=== PATIENT | female | born 1980 | race African-American/Black ===

== ENCOUNTER 2019-09-20 17:47 | Emergency (ER) | payer OTHER, SELFPAY ==
[2019-09-20 17:59] VITALS: BP 152/84; PULSE 107; RESP 16; TEMP 37.5; O2SAT 99
--- NOTE | 2019-09-20 18:02 | ED.FEMALEGU ---
HPI - Female Genitourinary General Chief complaint: Urogenital-Female Stated complaint: UTI Time Seen by Provider: 09/20/19 18:06 Source: patient and RN notes reviewed Mode of arrival: ambulatory Limitations: no limitations History of Present Illness HPI Narrative: 39 year old female who presents to [facility] care with complaints of frequency, increased thirst, lethargy, fatigue for the past week. Patient states she has also noted blood when she wiped with not being on her menses.Patient states she has noted that her urine has had foul smell and states past history of UTI's. Patient also states that she has red rash on abdominal skin fold which is itchy and request medication for rash. Urine noted to have 3+ glucose noted with no personal history of diabetes stated, states family history of diabetes in both parents. Glucose per finger stick noted to be 339, patient states that she has appointment with her family physician on copies of all labs done in clinic given to patient. MD elicited complaint: UTI and other (urinary frequency, noted blood when wiping, urine has foul odor) Pertinent past history: recurrent UTIs Onset (ago): week(s) (1) Location of symptoms: other (no pain) Severity: mild Female Urogenital Radiation: Non-Radiating Quality of pain: other (no acute pain) Consistency: constant Vaginal discharge: none Vaginal bleeding: none Urinary symptoms: Urgency, Frequency, Hematuria and Foul Smelling Urine Exacerbating factors: none Relieving factors: none Associated symptoms: other (polyuria,polydipsia) Treatment prior to arrival: none Sexual activity: Yes Patient : No Possible : other (tubal) Related Data Home Medications Medication Instructions Recorded Confirmed cholecalciferol (vitamin D3) 09/20/19 hydroxyzine HCl 09/20/19 sertraline mg 09/20/19 Allergies Allergy/AdvReac Type Severity Reaction Status Date / Time Penicillins Allergy Unknown Verified 01/08/18 06:20 Sulfa (Sulfonamide Allergy Unknown Verified 01/08/18 06:20 Antibiotics) Review of Systems Review of Systems: Narrative: CONSTITUTIONAL: Denies fever, chills, or sweats. EYES: Denies visual changes, redness, or discharge. ENT: Denies rhinorrhea, congestion, sore throat, or otalgia. CARDIOVASCULAR: Denies chest pain, palpitations, or edema. RESPIRATORY: Denies cough or dyspnea. GASTROINTESTINAL: Denies abdominal pain, nausea, vomiting, or diarrhea. GENITOURINARY: Denies dysuria urinary urgengy and frequency with hematuria. SKIN: red rash or itching abdominal skin fold no drainage MUSCULOSKELETAL: Denies back pain, joint pain, or myalgia. NEUROLOGIC: Denies headache, numbness, or weakness. PSYCHIATRIC:positive anxiety or depression. All systems reviewed & are unremarkable except as noted in HPI and below PMFSH Past Medical History Medical History (Updated 09/24/19 @ 11:13 by Danielle García NP) Anxiety and depression UTI (urinary tract infection) Surgical History Surgical History (Updated 09/20/19 @ 18:41 by Danielle García NP) Tubal ligation status Family History Family History (Updated 09/20/19 @ 18:42 by Danielle García NP) Mother Hypertension Diabetes mellitus Father Diabetes mellitus Social History Social History (Updated 09/20/19 @ 18:43 by Danielle García NP) Smoking status: Never smoker Living arrangements: with family Gender identity (if verbalized by the patient): Female Comments At time of signature, agree with nursing past medical, social history. There is no relevant family history pertinent to the presenting complaint Exam Narrative: Exam Narrative: GENERAL: Well-appearing, well-nourished, and in no acute distress. HEAD: Normocephalic, atraumatic. EYES: PERRLA and EOMI. ENT: Nares clear, no rhinorrhea or epistaxis. Mucous membranes moist. NECK: Supple.no lymphadenopathy CHEST: Clear to auscultation. No respiratory distress. HEART: Regular rate and rhythm.
[2019-09-20 18:23] LABS: Glucose Point of Care 339 (65-105)
== END 2019-09-20 18:58 | disposition home or self-care (01) ==
PROVIDERS: Emergency Provider Registered Nurse
DX: N39.0 Urinary tract infection, site not specified (principal); B37.2 Candidiasis of skin and nail; R73.9 Hyperglycemia, unspecified; F41.9 Anxiety disorder, unspecified; F32.9 Major depressive disorder, single episode, unspecified
CPT/HCPCS: 81003; 82948; 87086; 87088; 99213; G0463

== ENCOUNTER → 2020-07-23 08:00 | Outpatient (CLI) | payer OTHER, SELFPAY ==
--- NOTE | 2020-09-06 12:06 | WPDHOMESLEEP ---
Sleep Study - Home Unattended Date of Study: 07/23/20 Ordering Provider: Gerardo Rich APRN Interpreting Physician: Betsy Doss MD Home Sleep Study Type: Watch PAT Height: 1.6 m Weight: 113.398 kg Body Mass Index: 44.2 Neck Circumference (inches): 15 [place]: 16 Reason for Sleep Study poor quality sleep, waking up during the night Sleep History Gabby Cordon is a 40-year-old female with poor quality sleep. She will often sleep for 3 hours, then wake during the night, not feeling rested, unable to return to sleep. She has many things on her mind as a single parent with 4 children. There is a family history of sleep issues. She reports that her mother snores, and her rather uses CPAP. Her son snores and has had his tonsils removed. She has received amitriptyline to help with her sleep issues. She rarely awakens from sleep feeling short of breath. She occasionally awakens at night with heartburn, belching or coughing. She occasionally snores. Her snoring is never loud enough that it bothers others. She frequently has trouble sleeping with a cold. She occasionally wakes up gasping for breath during the night. She rarely has breathing problems at night observed by others. She rarely sweats excessively at night. She frequently notices her heart pounding or beating irregularly at night. She frequently falls asleep during the day, rarely involuntarily, never while driving. She never falls asleep while exerting physical effort. She does not have loss of muscle tone with strong emotion. She does not have daytime difficulties due to excessive sleepiness. 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 She does not feel paralyzed on waking or falling asleep. She rarely has vivid dream like scenes upon awakening or falling asleep. She is never afraid to go to sleep. she occasionally has nightmares. She frequently remembers her dreams. She frequently has racing thoughts, feelings of sadness, depression and anxiety. She rarely has muscular tension. She occasionally notices parts her body jerking. She occasionally kicks at night. She occasionally has crawling and aching feelings in her legs, rarely has any leg pain at night. She did not have morning jaw pain. She does not grind her teeth during sleep. She rarely is bothered by pain during the day, never is awakened by pain at night. She occasionally wakes up feeling stiff in the morning with sore achy muscles. She rarely wakes up with pain in the neck and spine. She has fatigue, insomnia, depression and feelings of panic. Normal bedtime is 10:00 p.m. he often falls asleep within 30 minutes. She typically wakes 2-3 times during the night. While awake, she will use the bathroom or pray for peace and relaxation. While she is awake she often stays awake for 1 hour. She wakes in the morning at 7:30 a.m.. On the weekends she goes to bed later, 11:00 p.m. and sleeps until 11: She does take naps in the afternoon or evening. A short 10-15 minute nap may be refreshing. She is usually drowsy in the morning for 2 hours or longer. She feels better in the afternoon compared to other times of day. Habits: No tobacco, caffeine, alcohol, or recreational drugs PMFSH Past Medical History Medical History (Updated 09/06/20 @ 12:29 by Betsy Doss MD) Anxiety and depression UTI (urinary tract infection) Surgical History Surgical History Tubal ligation status Family History Family History (Updated 09/06/20 @ 12:18 by Betsy Doss MD) Mother Hypertension Diabetes mellitus Father Diabetes mellitus Sleep apnea Social History Social History (Updated 09/06/20 @ 12:18 by Betsy Doss MD) Smoking status: Never smoker Alcohol intake: never Substance use: never Living arrangements: with family Gender identity (if verbalized by the patient): Female Medications Home Medications Medication Instructions Recor
[2020-09-06 12:39] VITALS: BMI 44.2
== END ==
PROVIDERS: Visit Provider Nurse Practitioner Family
DX: G47.09 Other insomnia (principal); R06.83 Snoring
CPT/HCPCS: 95800

== ENCOUNTER 2021-07-17 11:50 | Emergency (ER) | payer OTHER, SELFPAY ==
--- NOTE | 2021-07-17 11:58 | ED.FEMALEGU ---
HPI - Female Genitourinary General Chief complaint: Urogenital-Female Stated complaint: UTI,Blurred Vision Time Seen by Provider: 07/17/21 11:58 Source: patient, RN notes reviewed and old records reviewed Mode of arrival: ambulatory Limitations: no limitations History of Present Illness HPI Narrative: 41-year-old female presents to the [facility] with complaints of a decreased urination, blurry vision and states she is having trouble driving and seeing. Patient states she is a borderline diabetic. Does take Metformin. Has not taken her dose today. Patient reports that she was recently on prednisone for treatment of bronchitis. States that she was seen at [facility]. Related Data Home Medications Medication Instructions Recorded Confirmed cholecalciferol (vitamin D3) 09/20/19 hydroxyzine HCl 09/20/19 montelukast 10 mg PO DAILY 07/17/21 07/17/21 Allergies Allergy/AdvReac Type Severity Reaction Status Date / Time Penicillins Allergy Unknown Rash Verified 07/17/21 11:58 Sulfa (Sulfonamide Allergy Unknown Rash Verified 07/17/21 11:58 Antibiotics) Review of Systems Review of Systems: All systems reviewed & are unremarkable except as noted in HPI and below Constitutional: Constitutional: Reports no additional constitutional complaints, Denies chills and Denies fatigue Eyes: Eyes: Reports no additional eye complaints ENT: Reports system reviewed and no additional complaints, except as documented Cardiovascular: Cardiovascular: Reports no additional cardiovascular complaints and Denies chest pain Respiratory: Respiratory: Reports no additional respiratory complaints, Denies cough, Denies dyspnea and Denies wheezing Gastrointestinal: Gastrointestinal: Reports no additional gastrointestinal complaints, Denies abdominal pain, Denies nausea and Denies vomiting Genitourinary: Genitourinary: Reports as per HPI and Reports nocturia Musculoskeletal: Musculoskeletal: Reports no additional musculoskeletal complaints Integumentary/Breasts: Skin/Breast: Reports system reviewed and no additional complaints, except as docu Neurologic: Reports system reviewed and no additional complaints, except as documented Psychiatric: Psychiatric: Reports no additional psychiatric complaints Endocrine: Endocrine: Reports as per HPI, Reports fatigue, Reports polydipsia and Reports polyuria Allergic/Immunologic: Allergic/Immunologic: Reports no additional allergic/immunologic complaints PMFSH Past Medical History Medical History Anxiety and depression UTI (urinary tract infection) Surgical History Surgical History Tubal ligation status Family History Family History Mother Hypertension Diabetes mellitus Father Diabetes mellitus Sleep apnea Social History Social History Smoking status: Never smoker Alcohol intake: never Substance use: never Gender identity (if verbalized by the patient): Female Comments At the time of my signature, I reviewed and agree with the nursing past medical, surgical, social, and family history. There is no relevant family history pertinent to the patient complaint. Exam Const: General: healthy appearing, no acute distress and alert Nutritional Appearance: well nourished and obese Orientation/consciousness: patient oriented x3 Limitations: no limitations HENMT: Head: normal to inspection Ears: external ears normal, TM's normal bilaterally and EAC's normal Eyes: Conjunctivae: conjunctivae normal Pupils: Equal, round and reactive pupils present Neck: Neck: normal visual inspection, no lymphadenopathy and no meningeal signs Chest: Chest palpation & inspection: normal inspection of the chest Resp: Effort & Inspection: normal respiratory effort Auscultation: clear to auscultatio
[2021-07-17 12:04] VITALS: BP 113/54; PULSE 113; RESP 18; TEMP 37.3; O2SAT 100
[2021-07-17 12:20] LABS: Glucose Point of Care > 500 mg/dl (65-105)
== END 2021-07-17 12:16 | disposition short-term general hospital (02) ==
LOC: EXPCOLL 11:54
PROVIDERS: Emergency Provider Nurse Practitioner
DX: R73.9 Hyperglycemia, unspecified (principal)
CPT/HCPCS: 81003; 82948; 99215; G0463

== ENCOUNTER 2021-07-17 12:52 | Emergency (ER) | payer OTHER, SELFPAY ==
[2021-07-17 12:50] VITALS: BP 121/78; PULSE 115; RESP 17; O2SAT 98
[2021-07-17 13:06] LABS: Glucose Point of Care 480 mg/dl (65-105)
[2021-07-17 13:41] LABS: Basophils Absolute Auto 0.1 K/mm3 (0.0-0.1); Eosinophils Absolute Auto 0.5 K/mm3 (0-0.3); Hematocrit 39.5 % (37.0-47.0); Hemoglobin 13.4 g/dL (12.0-15.0); Immature Granulocyte Absolute 0.04 K/mm3 (0.00-0.031); Immature Granulocyte Percent A 0.6 % (0-0.5); Lymphocytes Absolute Auto 1.72 K/mm3 (0.9-3.2); Mean Corpuscular HGB Conc 33.9 g/dl (32-36); Mean Corpuscular Hemoglobin 26.5 pg (26-34); Mean Corpuscular Volume 78.1 fl (80-100); Mean Platelet Volume 10.5 fl (7.4-10.4); Monocytes Absolute Auto 0.7 K/mm3 (0.1-0.6); Monocytes Percent Auto 9.6 % (2.6-8.5); Neutrophils Absolute Auto 3.9 K/mm3 (1.3-6.7); Neutrophils Percent Auto 56.8 % (45.5-73.1); Platelet Count Result 493 k/mm3 (150-375); Red Blood Count 5.06 M/mm3 (4.2-5.4); Red Cell Distribution Width 13.9 % (11.5-14.5); White Blood Count 6.9 K/mm3 (4.5-10.0)
[2021-07-17 13:52] LABS: Fractional Inspired Oxygen 21 %; HCO3 VBG 22.3 mEq/l (24.0-30.0); PCO2 VBG 36.1 mmHg (42.0-48.0); PO2 VBG 69.7 mmHg (35.0-45.0)
[2021-07-17 13:55] LABS: Device ROOM AIR; pH VBG 7.409 (7.300-7.400)
[2021-07-17] MEDS: SODIUM CHLORIDE 0.9% IV 1,000 ML 999 ML IV CONT ×2 (13:58→14:03)
[2021-07-17 14:07] LABS: Alanine Aminotransferase 22 U/L (4-35); Alkaline Phosphatase 113 U/L (38-126); Anion Gap 15 mmol/L (8-16); Aspartate Amino Transferase 31 U/L (14-36); Bilirubin,Total 0.5 mg/dL (0.2-1.3); Blood Urea Nitrogen 6 mg/dL (7-17); Carbon Dioxide 19 mmol/L (22-30); Chloride 95 mmol/L (98-107); Estimated CRCL calculation 138 ml/min; Estimated Glomerular Filt Rate > 60; Glucose 490 mg/dL (65-110); Magnesium 1.5 mg/dL (1.6-2.3); Phosphorus 3.2 mg/dL (2.5-4.5); Sodium 129 mmol/L (137-145)
--- NOTE | 2021-07-17 14:14 | ED.GENADULT ---
HPI - General Adult General Chief complaint: Recheck/Abnormal Lab/Rx Stated complaint: high blood sugar Source: patient Mode of arrival: ambulatory Limitations: no limitations History of Present Illness HPI narrative: Patient is 41 years old -F[place] female presented to the ED with hyperglycemia noticed in the last 2 to 3 days. Patient also complaining of frequent urination. Patient denies any fever, chills, nausea, vomiting. Patient had a recent diagnosis of bronchitis, finished a course of antibiotic antibiotic and a course of prednisone 3 days ago. Patient had history of prediabetic and should be on Metformin 1000 twice daily, patient takes only once a day. Patient was vaccinated for COVID-19. Patient denies any fever, chills, nausea, vomiting, diarrhea, constipation or abdominal pain. Related Data Home Medications Medication Instructions Recorded Confirmed cholecalciferol (vitamin D3) 25 mcg PO DAILY 09/20/19 07/17/21 hydroxyzine HCl 25 mg PO DAILY 09/20/19 07/17/21 metformin mg 07/17/21 montelukast 10 mg PO DAILY 07/17/21 07/17/21 Allergies Allergy/AdvReac Type Severity Reaction Status Date / Time Penicillins Allergy Unknown Rash Verified 07/17/21 11:58 Sulfa (Sulfonamide Allergy Unknown Rash Verified 07/17/21 11:58 Antibiotics) codeine Allergy Rash Verified 07/17/21 13:07 ciprofloxacin AdvReac Nausea Verified 07/17/21 13:07 Review of Systems Review of Systems: CONSTITUTIONAL: Denies fever, chills, or sweats. EYES: Denies visual changes, redness, or discharge. ENT: Denies rhinorrhea, congestion, sore throat, or otalgia. CARDIOVASCULAR: Denies chest pain, palpitations, or edema. RESPIRATORY: Denies cough or dyspnea. GASTROINTESTINAL: Denies abdominal pain, nausea, vomiting, or diarrhea. GENITOURINARY: Denies dysuria or hematuria. SKIN: Denies rash or itching. MUSCULOSKELETAL: Denies back pain, joint pain, or myalgia. NEUROLOGIC: Denies headache, numbness, or weakness. PSYCHIATRIC: Denies anxiety or depression. [facility] Past Medical History Medical History Anxiety and depression UTI (urinary tract infection) Surgical History Surgical History Tubal ligation status Family History Family History Mother Hypertension Diabetes mellitus Father Diabetes mellitus Sleep apnea Social History Social History Smoking status: Never smoker Alcohol intake: never Substance use: never Gender identity (if verbalized by the patient): Female Exam Narrative: General appearance: Well-developed, well-nourished Skin: Normal color Head: Normocephalic, nontraumatic Eyes: Clear conjunctiva ENT: Oropharynx normal, ears normal, nose normal Neck: Supple, nontender Chest and respiratory: Airway patent, no respiratory distress, no accessory muscle use Heart: Regular rate/rhythm Abdomen: Soft, nontender, no organomegaly, quiet bowel sounds Vascular: Normal peripheral pulses, normal capillary refill. 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
[2021-07-17 14:59] LABS: Add Urine Microscopic? YES; Appearance Urine Clear (Clear); Bilirubin Urine Negative (Negative); Blood Urine Negative (Negative); Color Urine Straw (Yellow); Glucose Urine UA 3+ mg/dL (Negative); Ketones Urine Negative (Negative); Leukocyte Esterase Ur Negative LEU/UL (Negative); Mucus Urine Rare /lpf; Nitrate Urine Negative (Negative); Protein Urine Negative (Negative); RBC Urine 0-2 /hpf (0-2); Specific Grav Ur 1.025 (1.001-1.035); Squamous Epithelial Cell Urine Occasional /hpf (Few); Urobilinogen Urine Negative mg/dL (<2.0); WBC Urine 0-3 /hpf
[2021-07-17 15:08] LABS: Glucose Point of Care 389 mg/dl (65-105)
[2021-07-17] MEDS: INSULIN HUMAN REGULAR (*BKC) 100 UNITS/ML 13 UNITS IV PUSH (15:14)
--- NOTE | 2021-07-17 15:28 | PC.NURSE ---
Clarified with MD Davalos, even though patient's blood sugar decreasing, still give the 13 units Regular insulin IVP. Insulin administered with second RN. Pt updated on POC.
[2021-07-17 17:04] VITALS: PULSE 111; RESP 26
[2021-07-17 17:15] VITALS: PULSE 103; RESP 16
[2021-07-17 17:19] LABS: Glucose Point of Care 183 mg/dl (65-105)
[2021-07-17 17:50] VITALS: PULSE 99; RESP 15
[2021-07-17 17:58] LABS: Beta-Hydroxybutyrate/Acetoacetate 0.13 mmol/L (0.02-0.27)
[2021-07-17 18:50] VITALS: BP 134/68; PULSE 89; RESP 16; O2SAT 100
== END 2021-07-17 18:55 | disposition home or self-care (01) ==
PROVIDERS: Emergency Provider Emergency Medicine
DX: R73.9 Hyperglycemia, unspecified (principal); F32.9 Major depressive disorder, single episode, unspecified; Z87.440 Personal history of urinary (tract) infections; F41.9 Anxiety disorder, unspecified
CPT/HCPCS: 36415; 80053; 81001; 81003; 82010; 82803; 82948; 83735; 84100; 85025; 96361; 96374; 99284; J1815; J7030

== ENCOUNTER 2022-08-31 19:33 | Emergency (ER) | payer OTHER, SELFPAY ==
--- NOTE | 2022-08-31 19:34 | ED.FEMALEGU ---
HPI - Female Genitourinary General Chief complaint: Urogenital-Female Stated complaint: UTI Time Seen by Provider: 08/31/22 19:34 Source: patient Mode of arrival: ambulatory Limitations: no limitations History of Present Illness HPI Narrative: Ms. Cordon is a 42-year-old female patient presenting to clinic today with complaints of possible urinary tract infection times 2-3 days. She reports she is having burning with urination as well as some low back pain and lower abdominal pain. She denies any fever but has had some chills with this. Patient has been taking azo for her symptoms. Related Data Home Medications Medication Instructions Recorded Confirmed cholecalciferol (vitamin D3) 25 25 mcg PO DAILY 09/20/19 08/31/22 mcg (1,000 unit) tablet hydroxyzine HCl 25 mg tablet 25 mg PO DAILY 09/20/19 08/31/22 metformin 1,000 mg tablet 1,000 mg PO BID 07/17/21 08/31/22 montelukast 10 mg tablet 10 mg PO DAILY 07/17/21 08/31/22 duloxetine 30 mg capsule,delayed 30 mg PO BID 08/31/22 08/31/22 release Allergies Allergy/AdvReac Type Severity Reaction Status Date / Time Penicillins Allergy Unknown Rash Verified 08/31/22 19:49 Sulfa (Sulfonamide Allergy Unknown Rash Verified 08/31/22 19:49 Antibiotics) codeine Allergy Rash Verified 08/31/22 19:49 ciprofloxacin AdvReac Nausea Verified 08/31/22 19:49 Review of Systems Review of Systems: Pertinent positives per HPI. Patient denies any fever, rash, headache, visual changes, dizziness, cough, runny nose, sore throat, shortness of breath, chest pain, palpitations, nausea, vomiting, diarrhea, or constipation. [facility] Past Medical History Medical History Anxiety and depression UTI (urinary tract infection) Surgical History Surgical History Tubal ligation status Family History Family History Mother Hypertension Diabetes mellitus Father Diabetes mellitus Sleep apnea Social History Social History Smoking status: Never smoker Alcohol intake: never Substance use: never Living arrangements: with family Gender identity (if verbalized by the patient): Female Comments At the time of my signature, I reviewed and agree with the nursing past medical, surgical, social, and family history. There is no relevant family history pertinent to the patient complaint. Exam Narrative: General: Well-developed, morbidly obese, in no apparent distress. Head: Normocephalic, atraumatic. Cardio: Regular rate and rhythm, s1 and s2 normal, no murmur appreciated. Resp: Clear to auscultation bilaterally, no rhonchi, rales, wheezing or rubs. Abdomen: Soft, pliable, bowel sounds present in all quadrants, tender to palpation over the bladder, no organomegly, right-sided CVAT tenderness. Course Course Emergency Course: Portions of this record may have been created with voice recognition software. Level of Care: Express Care Visit Vital Signs Vital signs: Vital signs reviewed MDM - Female Genitourinary MDM Narrative Medical decision making narrative: At the time of visit patient is resting comfortably on the exam table. UA was obtained and was positive for nitrates, blood, leukocytes, and protein. Patient has multiple allergies so I will send in prescription for Macrobid and await urine culture. Supportive measures were discussed with the patient she voiced understanding of discharge instructions and agrees to treatment plan. Differential Diagnosis Differential diagnosis: Likely urinary tract infection, cystitis and other (Pyelonephritis) Discharge Plan Discharge Clinical Impression: Urinary tract infection Qualifiers: Urinary tract infection type: acute cystitis Hematuria presence: with hematuria Qualified Code(s): N30.01 -
[2022-08-31 19:37] VITALS: BP 143/78; PULSE 107; RESP 20; TEMP 36.1; O2SAT 100
== END 2022-08-31 19:52 | disposition home or self-care (01) ==
PROVIDERS: Emergency Provider Nurse Practitioner Family; PCP Family Medicine
DX: N30.01 Acute cystitis with hematuria (principal); F41.9 Anxiety disorder, unspecified
CPT/HCPCS: 81003; 87077; 87086; 87186; 99213; G0463

== ENCOUNTER 2023-07-09 09:51 | Emergency (ER) | payer OTHER, SELFPAY ==
[2023-07-09 10:05] VITALS: BP 131/78; PULSE 101; RESP 16; TEMP 37.2; O2SAT 97
--- NOTE | 2023-07-09 10:35 | ED.GENADULT ---
HPI - General Adult General Chief complaint: Unspecified Stated complaint: vision blurry,blood sugar high, vaginal order Time Seen by Provider: 07/09/23 10:35 Source: patient Mode of arrival: ambulatory Limitations: no limitations History of Present Illness HPI narrative: 43 yo F presents with c/o vaginal odor, perea discharge. States recent intercourse and her partner told her she had fishy odor. Concern for bacterial vaginosis. Has had problems with in the past. Reports recently taking more baths and using a scented soap. Denies itching, pain. No concern for STI. would also like BS checked. Glucose monitor broken. had blurry vision before arrival but nurse told her to put on her glasses and now resolved. States doesn't like wearing glasses because they make her look older. All systems reviewed and negative except as noted above. Related Data Home Medications Medication Instructions Recorded Confirmed hydroxyzine HCl 25 mg tablet 25 mg PO DAILY 09/20/19 07/09/23 Allergies Allergy/AdvReac Type Severity Reaction Status Date / Time Penicillins Allergy Unknown Rash Verified 07/09/23 10:13 Sulfa (Sulfonamide Allergy Unknown Rash Verified 07/09/23 10:13 Antibiotics) codeine Allergy Rash Verified 07/09/23 10:13 ciprofloxacin AdvReac Nausea Verified 07/09/23 10:13 Review of Systems Review of Systems: CONSTITUTIONAL: Denies fever, chills, or sweats. EYES: Denies visual changes, redness, or discharge. ENT: Denies rhinorrhea, congestion, sore throat, or otalgia. CARDIOVASCULAR: Denies chest pain, palpitations, or edema. RESPIRATORY: Denies cough or dyspnea. GASTROINTESTINAL: Denies abdominal pain, nausea, vomiting, or diarrhea. GENITOURINARY: Denies dysuria or hematuria. Reports vaginal odor and Grade discharge. SKIN: Denies rash or itching. MUSCULOSKELETAL: Denies back pain, joint pain, or myalgia. NEUROLOGIC: Denies headache, numbness, or weakness. PSYCHIATRIC: Denies anxiety or depression. All other systems reviewed are negative, except as documented in HPI. [facility] Past Medical History Medical History Anxiety and depression UTI (urinary tract infection) Surgical History Surgical History Tubal ligation status Family History Family History Mother Hypertension Diabetes mellitus Father Diabetes mellitus Sleep apnea Social History Social History Smoking status: Never smoker Alcohol intake: never Substance use: never Living arrangements: with family Gender identity (if verbalized by the patient): Female Comments At time of signature, agree with nursing past medical, surgical, social and family history. There is no relevant family history pertinent to the presenting complaint. Exam Narrative: GENERAL: This is a well-nourished, well-developed patient, in no apparent distress. HEAD: normocephalic, atraumatic. EYES: PERRL. Sclera clear/white. Vision is grossly intact. EARS: External ears normal NOSE: External nose normal NECK: Neck supple, non-tender without lymphadenopathy, masses or thyromegaly. CARDIOVASCULAR: Regular rate and rhythm without murmurs, gallops, or rubs. RESPIRATORY: Clear to auscultation. Breath sounds equal bilaterally. No wheezes, rales, or rhonchi. SKIN: warm, Dry, intact with no suspicious lesions or rash, good texture and turgor. NEURO: awake, alert, and oriented to person, place and time. There were no obvious focal neurologic abnormalities. EXTREMITIES: No joint tenderness, effusion, or edema noted. GENITOURINARY: pt deferred pelvic exam Course Course Level of Care: Express Care Visit Vital Signs Vital signs: Vital Signs Temperature 37.2 C 07/09/23 10:05 Pulse Rate 101 H 07/09/23 10:05 Resp
[2023-07-09 10:36] LABS: Glucose Point of Care 178 mg/dl (65-105)
== END 2023-07-09 10:58 | disposition home or self-care (01) ==
PROVIDERS: Emergency Provider Nurse Practitioner Family
DX: N76.0 Acute vaginitis (principal); F41.9 Anxiety disorder, unspecified
CPT/HCPCS: 82948; 99213; G0463